=== PATIENT | female | born 1985 | race Caucasian/White ===

== ENCOUNTER 2017-01-16 16:09 | Emergency (ER) | payer OTHER ==
--- NOTE | 2017-01-16 16:39 | ED NURSING NOTES ---
Clinical Report - Nurses [facility] [address] [place] [address] 01/16/2017 16:12 [id number] Triage time 16:21 Jan 16 2017. Acuity: LEVEL 4. Chief Complaint: RIGHT UPPER EXTREMITY PAIN and NUMBNESS. Alert. No acute distress. CATHY COMA SCORE: [place] Coma Scale: 15- eyes open spontaneously (4); best verbal response- oriented x 4 (5); best motor response- obeys commands (6). --16:25 Nancy Cage R.N. 16:20 01/16/17. BP: 131/79. HR: 74. RR: 16. O2 saturation: 97%. Temp: 98 F. Pain level now: 0/10. Additional comments: increases to 4/10 when she moves it. --16:25 Nancy Cage R.N. Weight: 115.2 kg stated. Height/Length: 66 inches Per Patient. BMI: 41. --16:20 Nancy Cage R.N. Medications Multivitamins Oral. --16:23 Nancy Cage R.N. Fish Oil Oral. --16:23 Nancy Cage R.N. Probiotic Oral. --16:23 Nancy Cage R.N. Magnesium Oral. --16:23 Nancy Cage R.N. Vitamin D Oral. --16:23 Nancy Cage R.N. Allergies None. --16:23 Nancy Cage R.N. History Arrived by private vehicle. Historian: patient. Accompanied by family. Injury occurred. This occurred last night. ( hit above wrist with sippy cup and now she is having pain and she is unable to make a fist). Treatment REHABILITATION SERVICES AIDE: Applied ice. PAST MEDICAL HX: Tetanus status: up-to-date. Immunizations: up-to-date. Last normal menstrual period now. Denies current . SOCIAL HX: Never smoker. No alcohol use or drug use. No infectious disease exposure. SELF HARM ASSESSMENT: A self harm assessment was performed. The patient answered "no" to the question "Do you have thoughts of harming or killing yourself?". FALL RISK ASSESSMENT: Fall risk assessment completed. No fall risk identified. NUTRITIONAL RISK ASSESSMENT: The nutritional risk assessment revealed no deficiencies. FUNCTIONAL ASSESSMENT: Functional assessment: no impairments noted. LEARNING NEEDS ASSESSMENT: The learning needs assessment revealed no barriers. ABUSE ASSESSMENT: Abuse assessment: The patient was asked "Do you feel safe in your home?". SKIN INTEGRITY ASSESSMENT: Skin integrity risk assessment completed. No skin integrity risk identified. --16:25 Nancy Cage R.N. ADDITIONAL SURGERIES: Dental Surgery. Lymph node biopsy. Tonsillectomy & Adenoidectomy. --16:24 Nancy Cage R.N. Interventions ID band on patient. To room. --16:25 Nancy Cage R.N. PHYSICAL ASSESSMENT GENERAL / NEURO / PSYCH: Oriented X 4. Alert. Appears in no acute distress. EXTREMITIES: Limited ROM present. Neuro-vascular status intact to the extremity. No upper extremity edema. Right wrist: tenderness located in the radial aspect of the wrist. SKIN: Skin is warm and dry. --16:25 Nancy Cage R.N. NURSING PROGRESS NOTES Patient identifiers checked. Call light placed in reach. Side rails up x 1. Bed placed in lowest position. Brakes of bed on. --16:26 Nancy Cage R.N. DISPOSITION / DISCHARGE Departure time: 16:57 Jan 16 2017. Condition at departure: unchanged. No learning barriers present. Discharge instructions provided and reviewed with the patient. Reviewed referral to a primary care physician for followup. Patient verbalized understanding. Written instructions provided in [place]. The patient was discharged home and accompanied by spouse. She left the Emergency Department ambulatory and via private vehicle. Spouse driving. FALL RISK ASSESSMENT: Fall risk assessment completed. No fall risk identified. --16:57 Nancy Cage R.N. Locked/Released at 01/17/2017 11:00 by Nancy Cage R.N.
--- NOTE | 2017-01-16 16:39 | ED ORDER SUMMARY ---
..... Patient: WYATT HINOJOSA OrderSheet [facility] VisitID: [id number] [place] [address] 31y, F Registration Date/Time: 01/16/2017 ORDER SHEET Weight: 115.2 kg (stated) Allergies: None GENERAL ORDERS: Splint (UE) (Right) (Velcro - wrist) (premade or fiberglass colles') (16:34 01/16/2017 SThom A.R.N.P.) (Ack 16:46 Jimena) (16:51 PWeiler ER Tech1) Sling - arm (16:34 01/16/2017 SThom A.R.N.P.) (Ack 16:46 Jimena) (16:51 PWeiler ER Tech1) MEDICATION ORDERS: IV FLUIDS: ORDER SHEET NOTES: [Electronically signed by Zoë Enrique A.R.N.P. (17:08 01/16/2017)] [Electronically signed by Nancy Cage R.N. (11:01/17/2017)] [Electronically locked/signed by Nancy Cage R.N. (11:01/17/2017)]
--- NOTE | 2017-01-16 16:39 | ED NURSING NOTES ---
Clinical Report - Nurses [facility] [address] [place] [address] 01/16/2017 16:12 [id number] Triage time 16:21 Jan 16 2017. Acuity: LEVEL 4. Chief Complaint: RIGHT UPPER EXTREMITY PAIN and NUMBNESS. Alert. No acute distress. CATHY COMA SCORE: [place] Coma Scale: 15- eyes open spontaneously (4); best verbal response- oriented x 4 (5); best motor response- obeys commands (6). --16:25 Nancy Cage R.N. 16:20 01/16/17. BP: 131/79. HR: 74. RR: 16. O2 saturation: 97%. Temp: 98 F. Pain level now: 0/10. Additional comments: increases to 4/10 when she moves it. --16:25 Nancy Cage R.N. Weight: 115.2 kg stated. Height/Length: 66 inches Per Patient. BMI: 41. --16:20 Nancy Cage R.N. Medications Multivitamins Oral. --16:23 Nancy Cage R.N. Fish Oil Oral. --16:23 Nancy Cage R.N. Probiotic Oral. --16:23 Nancy Cage R.N. Magnesium Oral. --16:23 Nancy Cage R.N. Vitamin D Oral. --16:23 Nancy Cage R.N. Allergies None. --16:23 Nancy Cage R.N. History Arrived by private vehicle. Historian: patient. Accompanied by family. Injury occurred. This occurred last night. ( hit above wrist with sippy cup and now she is having pain and she is unable to make a fist). Treatment MARKETING OPERATIONS ASSISTANT: Applied ice. PAST MEDICAL HX: Tetanus status: up-to-date. Immunizations: up-to-date. Last normal menstrual period now. Denies current . SOCIAL HX: Never smoker. No alcohol use or drug use. No infectious disease exposure. SELF HARM ASSESSMENT: A self harm assessment was performed. The patient answered "no" to the question "Do you have thoughts of harming or killing yourself?". FALL RISK ASSESSMENT: Fall risk assessment completed. No fall risk identified. NUTRITIONAL RISK ASSESSMENT: The nutritional risk assessment revealed no deficiencies. FUNCTIONAL ASSESSMENT: Functional assessment: no impairments noted. LEARNING NEEDS ASSESSMENT: The learning needs assessment revealed no barriers. ABUSE ASSESSMENT: Abuse assessment: The patient was asked "Do you feel safe in your home?". SKIN INTEGRITY ASSESSMENT: Skin integrity risk assessment completed. No skin integrity risk identified. --16:25 Nancy Cage R.N. ADDITIONAL SURGERIES: Dental Surgery. Lymph node biopsy. Tonsillectomy & Adenoidectomy. --16:24 Nancy Cage R.N. Interventions ID band on patient. To room. --16:25 Nancy Cage R.N. PHYSICAL ASSESSMENT GENERAL / NEURO / PSYCH: Oriented X 4. Alert. Appears in no acute distress. EXTREMITIES: Limited ROM present. Neuro-vascular status intact to the extremity. No upper extremity edema. Right wrist: tenderness located in the radial aspect of the wrist. SKIN: Skin is warm and dry. --16:25 Nancy Cage R.N. NURSING PROGRESS NOTES Patient identifiers checked. Call light placed in reach. Side rails up x 1. Bed placed in lowest position. Brakes of bed on. --16:26 Nancy Cage R.N. DISPOSITION / DISCHARGE Departure time: 16:57 Jan 16 2017. Condition at departure: unchanged. No learning barriers present. Discharge instructions provided and reviewed with the patient. Reviewed referral to a primary care physician for followup. Patient verbalized understanding. Written instructions provided in [place]. The patient was discharged home and accompanied by spouse. She left the Emergency Department ambulatory and via private vehicle. Spouse driving. FALL RISK ASSESSMENT: Fall risk assessment completed. No fall risk identified. --16:57 Nancy Cage R.N. Locked/Released at 01/17/2017 11:00 by Nancy Cage R.N.
--- NOTE | 2017-01-16 16:39 | ED CLINICAL REPORT ---
Clinical Report - Physicians/Mid Levels [facility] [address] [place] [address] 01/16/2017 16:12 Patient: WYATT HINOJOSA Time Seen; upon arrival. Arrived- By private vehicle. Historian- patient. HISTORY OF PRESENT ILLNESS Chief Complaint: Injury to the right wrist. The injury happened last night. Occurred at home. The patient sustained a light direct blow ((sippy cup hit forearm/wrist)). Patient is experiencing moderate pain. No other injury. REVIEW OF SYSTEMS The patient has had numbness, and weakness. No swelling, foreign body or skin laceration. PAST HISTORY See nurses notes. "recently on a lot of cipro for infection so fairly sure this is a tendon problem" LMP: now. She has not had a prior injury to the same area. Problems: no known problems. Surgeries: Adenoidectomy. Dental surgery. Tonsillectomy. (lymph node bx). Medications: Vitamin D Oral. Magnesium Oral. Probiotic Oral. Fish Oil Oral. Multivitamins Oral. Allergies: None. SOCIAL HISTORY Never smoker. No alcohol use or drug use. ADDITIONAL NOTES The nursing notes have been reviewed. PHYSICAL EXAM Vital Signs: 01/16/2017 16:20 BP: 131/79. HR: 74. RR: 16. O2 saturation: 97%. Temp: 98 F. Pain level now: 0/10. Have been reviewed and appear to be correct. Appearance: Alert. Oriented X3. No acute distress. Head: Head atraumatic. CVS: Normal heart rate and rhythm. Respiratory: No respiratory distress. Skin: Skin warm and dry. Skin intact. Extremities: Right distal radius: mild tenderness. Limited thumb movement secondary to pain. Limited ROM at the wrist secondary to pain and weakness. Neurovascular intact distally. (most tender approx 2" above distal radius/wrist jt). No erythema, swelling, laceration, abrasion or ecchymosis. No puncture wound, foreign body or deformity. Soft tissue tenderness present. No bony tenderness. No signs of infection present. No wrist injury. No hand injury. Extremities otherwise negative. Neuro, Vascular and Tendons: Vascular status intact. Sensation intact. Neuro: Oriented X 3. PROGRESS AND PROCEDURES Course of Care: do not suspect a fracture or dislocation Patient has motion of all fingers against resistance and normal circulation She has concern for lag of 4th and 5th fingers Advise NSAID and splint, w/ re-eval by PCP next week. Patient is stable. Patient and spouse counseled in person regarding the patient's condition and need for follow-up. Disposition: Discharged. Condition: stable. CLINICAL IMPRESSION Single contusion to the right forearm. Acute tendonitis in the right forearm. INSTRUCTIONS Apply ice. Elevate affected areas above chest level. Wear sling. Limit use of your hand. (2 naproxen twice daily (aleve) or 3 ibuprofen 3 times daily See your PCP for a recheck Return if loss of circulation or complete loss of ability to move the fingers. At this time, exam is more consistent with acute inflammation.). Warnings: GENERAL WARNINGS: Return or contact your physician immediately if your condition worsens or changes unexpectedly, if not improving as expected, or if other problems arise. Follow-up: Follow up with your doctor in about three days. Summary of care provided to patient. Understanding of the discharge instructions verbalized. (Electronically signed by Zoë Enrique A.R.N.P. 01/16/2017 17:08)
--- NOTE | 2017-01-16 16:39 | ED ORDER SUMMARY ---
..... Patient: WYATT HINOJOSA OrderSheet [facility] VisitID: [id number] [place] [address] 31y, F Registration Date/Time: 01/16/2017 ORDER SHEET Weight: 115.2 kg (stated) Allergies: None GENERAL ORDERS: Splint (UE) (Right) (Velcro - wrist) (premade or fiberglass colles') (16:34 01/16/2017 SThom A.R.N.P.) (Ack 16:46 Jimena) (16:51 PWeiler ER Tech1) Sling - arm (16:34 01/16/2017 SThom A.R.N.P.) (Ack 16:46 Jimena) (16:51 PWeiler ER Tech1) MEDICATION ORDERS: IV FLUIDS: ORDER SHEET NOTES: [Electronically signed by Zoë Enrique A.R.N.P. (17:08 01/16/2017)] [Electronically signed by Nancy Cage R.N. (11:01/17/2017)] [Electronically locked/signed by Nancy Cage R.N. (11:01/17/2017)]
--- NOTE | 2017-01-17 11:01 | ED MED RECONCILIATION SUMMARY ---
Patient: WYATT HINOJOSA Medication Reconciliation Report [facility] VisitID: [id number] [address] [place] [address] 31y, F Registration Date/Time: 01/16/2017 Weight: 115.2 kg Height/Length: 66 in. BMI: 41.0 ALLERGIES: None The patient's Home Medications are listed below: THE FOLLOWING MEDICATIONS NEED TO BE RECONCILED: Fish Oil Oral Magnesium Oral Multivitamins Oral Probiotic Oral Vitamin D Oral The source(s) of the original Home Medication information: Not obtained. The following Medications were given to the patient in the Emergency Department: None. The following Medications were prescribed to the patient: None.
--- NOTE | 2017-01-17 11:01 | ED DISCHARGE INSTRUCTIONS ---
Patient: WYATT HINOJOSA General Instructions [facility] VisitID: [id number] [place] [address] 31y, F Registration Date/Time: 01/16/2017 Single contusion to the right forearm. Acute tendonitis in the right forearm. INSTRUCTIONS Apply ice. Elevate affected areas above chest level. Wear sling. Limit use of your hand. (2 naproxen twice daily (aleve) or 3 ibuprofen 3 times daily See your PCP for a recheck Return if loss of circulation or complete loss of ability to move the fingers. At this time, exam is more consistent with acute inflammation.). Warnings: GENERAL WARNINGS: Return or contact your physician immediately if your condition worsens or changes unexpectedly, if not improving as expected, or if other problems arise. Follow-up: Follow up with your doctor in about three days. Summary of care provided to patient. Understanding of the discharge instructions verbalized. ADDITIONAL INFORMATION Contusion:Upper Extremity You have a contusion of your upper extremity (arm, wrist, hand or fingers). This causes local pain, swelling and sometimes bruising. There are no broken bones. This injury takes a few days to a few weeks to heal. A sling may be provided for comfort and arm support. Home Care: 1) Keep your arm elevated to reduce pain and swelling. This is very important during the first 48 hours. 2) Apply an ice pack (ice cubes in a plastic bag, wrapped in a towel) over the injured area for 20 minutes every 1-2 hours the first day for pain relief. Continue this 3-4 times a day until the pain and swelling goes away. 3) You may use acetaminophen (Tylenol) or ibuprofen (Motrin, Advil) to control pain, unless another pain medicine was prescribed. [ NOTE : If you have chronic liver or kidney disease or ever had a stomach ulcer or GI bleeding, talk with your doctor before using these medicines.] 4) If a sling was provided, you may remove it to shower or bathe. Do not wear it for more than one week or it may cause joint stiffness. Follow Up with your doctor or this facility if you are not starting to improve within the next THREE days. [NOTE: If X-rays were taken, they will be reviewed by a radiologist. You will be notified of any new findings that may affect your care.] Get Prompt Medical Attention if any of the following occur: -- Pain or swelling increases -- Redness, warmth or drainage -- Hand or fingers becomes cold, blue, numb or tingly Tendonitis A tendon is the thick fibrous cord that joins muscle to bone and causes joints to move. Tendonitis is inflammation of the tendon which may be due to overuse, injury or infection. This usually involves the shoulders, forearm, wrist, hands and foot. Symptoms include local pain, swelling and tenderness to the touch. Movement of the involved joint increases the pain. Tendonitis requires about 4 to 6 weeks to heal. It is treated by preventing motion of the tendon with a splint or brace and use of anti-inflammatory medicine. Home Care: Apply an ice pack (ice cubes in a plastic bag, wrapped in a towel) over the injured area for 20 minutes every 1-2 hours the first day for pain relief. Continue this 3-4 times a day until the pain and swelling goes away. Rest the inflamed joint and protect it from movement. You may use ibuprofen (Motrin, Advil) or naproxen (Aleve, Naprosyn) to treat pain and inflammation, unless another medicine was prescribed. If you can't take these medicines, acetaminophen (Tylenol) may help with the pain, but does not treat inflammation. [NOTE : If you have chronic liver or kidney disease or ever had a stomach ulcer or GI bleeding, talk with your doctor before using these medicines.] As your symptoms improve, begin gradual motion at the involved joint. Follow Up With Your Doctor If Not Improving After The First Five Days Of Treatment. Get Prompt Medical Attention If Any Of The Following Occur: Redness over the painful area Increasing pain or swelling at the joint Fever of 100.4F (38C) or higher, or as directed by your healthcare provider You have been given the following additional information: Contusion, Upper Extremity Tendonitis Limit use of your hand. (Electronically signed by Zoë Enrique A.R.N.P. 01/16/2017 17:08)
--- NOTE | 2017-01-17 11:01 | ED MAR SUMMARY ---
..... Medication Administration Record [address] [place], [place] [id number] Patient: WYATT HINOJOSA Visit ID: [id number] 31y, F Weight: 115.2 kg Height/Length: 66 in BMI: 41 ALLERGIES: None
--- NOTE | 2017-01-17 11:01 | ED MAR SUMMARY ---
..... Medication Administration Record [facility] [address] [place], [place] [id number] Patient: WYATT HINOJOSA Visit ID: [id number] 31y, F Weight: 115.2 kg Height/Length: 66 in BMI: 41 ALLERGIES: None
--- NOTE | 2017-01-17 11:01 | ED MED RECONCILIATION SUMMARY ---
Patient: WYATT HINOJOSA Medication Reconciliation Report [facility] VisitID: [id number] [address] [place] [address] 31y, F Registration Date/Time: 01/16/2017 Weight: 115.2 kg Height/Length: 66 in. BMI: 41.0 ALLERGIES: None The patient's Home Medications are listed below: THE FOLLOWING MEDICATIONS NEED TO BE RECONCILED: Fish Oil Oral Magnesium Oral Multivitamins Oral Probiotic Oral Vitamin D Oral The source(s) of the original Home Medication information: Not obtained. The following Medications were given to the patient in the Emergency Department: None. The following Medications were prescribed to the patient: None.
== END 2017-01-16 16:57 | disposition home or self-care (01) ==
LOC: ED SRH 16:09
DX: S50.11XA Contusion of right forearm, initial encounter (principal); M77.9 Enthesopathy, unspecified; W20.8XXA Other cause of strike by thrown, projected or falling object, initial encounter; Y93.9 Activity, unspecified; Y92.009 Unspecified place in unspecified non-institutional (private) residence as the place of occurrence of the external cause; Y99.9 Unspecified external cause status